=== PATIENT | male | born 1950 | race Caucasian/White ===

== ENCOUNTER → 2019-10-31 16:37 | Outpatient (BNVA) | payer MEDICAID, SELFPAY | PROVIDERS: Visit Provider Nurse Practitioner Family | DX: I10 Essential (primary) hypertension (principal); Z79.899 Other long term (current) drug therapy; E55.9 Vitamin D deficiency, unspecified; R60.9 Edema, unspecified; E78.00 Pure hypercholesterolemia, unspecified; R53.83 Other fatigue | CPT/HCPCS: 80053; 80061; 81001; 82306; 83036; 83880; 84443; 85025 ==

== ENCOUNTER 2021-12-10 23:35 | Emergency (ER) | payer MEDICAID, SELFPAY ==
[2021-12-10 23:51] VITALS: BP 120/77; PULSE 107; RESP 24; TEMP 36.8; O2SAT 90; BMI 33.9
--- NOTE | 2021-12-10 23:52 | ED_ITS ---
HPI - General Adult General: Stated complaint: R ear Pain Time Seen by Provider: 12/10/21 23:37 Source: patient Mode of arrival: ambulatory Limitations: no limitations History of Present Illness: 71-year-old male states he has had some decreased hearing out of his right ear over the last week. He states that he uses Q-tips and has had cerumen impaction that he reported is feels the same denies any pain denies any fever. Associated symptoms: Deny chest pain, dyspnea, headache(s), nausea, rash or vomiting Review of Systems Const: Denies: fever(s), chills, body aches or change in appetite Eyes: Denies: blurry vision or eye discomfort ENMT: Denies: throat pain or dental pain Card: Denies: chest pain Resp: Denies: dyspnea GI: Denies: abdominal pain, nausea, vomiting or diarrhea : Denies: dysuria Musc: Denies: neck pain or back pain Skin/Breast: Denies: rash Neuro: Denies: headache(s) Psych: Denies: depression Christiano/Lymph: Denies: easy bruising All/Imm: Denies: urticaria PFSH ED PFSH: Medical History Anxiety and depression COPD (chronic obstructive pulmonary disease) Essential hypertension Vitamin D deficiency Social History Smoking and tobacco status: former smoker Second hand smoke exposure: No Smoking risk assessment/counseling performed?: No Alcohol intake: never Desire information about alcohol rehabilitation?: No Counseling given: No Physical Exam Const: COMMON NORMALS: no acute distress and patient oriented x3 HENMT: COMMON NORMALS: normocephalic HEAD & SCALP: normocephalic OTHER: Cerumen impaction right ear canal Eye: COMMON NORMALS: conjunctivae normal CONJUNCTIVA: Yes conjunctivae normal Neck/C-Spine: COMMON NORMALS: full ROM Chest: COMMONS NORMALS: normal inspection of the chest Resp: COMMON NORMALS: normal respiratory effort Cardio: COMMON NORMALS: regular rate RATE: regular rate GI: INSPECTION: Yes normal to inspection Extremity: COMMON NORMALS: normal to inspection Neuro: COMMON NORMALS: patient oriented x3 Psych: COMMON NORMALS: mental status grossly normal Skin: COMMON NORMALS: no rashes or lesions noted GENERAL SKIN EXAM: no rashes or lesions noted [facility] - General Adult Medical Decision Making Patient presents for cerumen impaction to his right ear likely causing some decreased hearing he is well-appearing he otherwise has no pain he is stable for discharge he is to use mineral oil and follow-up with PCP. Discharge Plan Discharge Patient Disposition: Home Clinical Impression: Cerumen impaction Qualifiers: Laterality: right Qualified Code(s): H61.21 - Impacted cerumen, right ear Condition: Stable Prescriptions: No Action budesonide-formoterol [Symbicort] 160-4.5 mcg/actuation HFA aerosol inhaler 2 inh inhalation BID 30 Days Qty: 10.2 11RF albuterol sulfate [ProAir HFA] 90 mcg/actuation HFA aerosol inhaler See Rx Instructions .ROUTE .COMPLEX Qty: 8.5 5RF Dose Instruction: USE 2 INHALATIONS EVERY 6 HOURS NEEDED FOR SHORTNESS OF BREATH OR WHEEZING. No further refills until appointment Rx Instructions: USE 2 INHALATIONS EVERY 6 HOURS NEEDED FOR SHORTNESS OF BREATH OR WHEEZING. No further refills until appointment lisinopril-hydrochlorothiazide 20-12.5 mg tablet See Rx Instructions .ROUTE .COMPLEX Qty: 30 2RF Dose Instruction: TAKE ONE TABLET BY MOUTH DAILY Pt must make appointment FOR additional refills. Rx Instructions: TAKE ONE TABLET BY MOUTH DAILY Pt must make appointment FOR additional re fills. ergocalciferol (vitamin D2) 1,250 mcg (50,000 unit) capsule See Rx Instructions .ROUTE .COMPLEX Qty: 4 2RF Dose Instruction: TAKE ONE CAPSULE BY MOUTH WEEKLY (NO FURTHER REFILLS UNTIL APPOINTMENT IS MADE) Rx Instructions: TAKE ONE CAPSULE BY MOUTH WEEKLY (NO FURTHER REFILLS UNTIL APPOINTMENT IS MADE) aspirin 81 mg tablet,delayed release (DR/EC) See Rx Instructions .ROUTE .COMPLEX Qty: 30 2RF Dose Instruction: TAKE ONE TABLET BY MOUTH DAILY Rx Instructions: TAKE ONE TABLET BY MOUTH DAILY Discharge Orders: Discharge ED (Routine); Ordered 12/10/21 Ordered By: Whitney Jang Referrals: ROSANA Michelle, FIELD CHECKER [Primary Care Provider] - Discharge Diet: Advance as tolerated Discharge Activity: Use walker/crutches as instructed Patient Instructions: Cerumen Impaction Coding Level of Care Code ED Biology Instructor for Chg Reed
[2021-12-11 00:19] VITALS: BP 121/71; PULSE 98; RESP 24; TEMP 37.1; O2SAT 94
== END 2021-12-11 00:21 | disposition home or self-care (01) ==
PROVIDERS: Emergency Provider Emergency Medicine; PCP Nurse Practitioner Family
DX: H61.21 Impacted cerumen, right ear (principal); Z79.82 Long term (current) use of aspirin; J44.9 Chronic obstructive pulmonary disease, unspecified; I10 Essential (primary) hypertension; Z87.891 Personal history of nicotine dependence
CPT/HCPCS: 99282